=== PATIENT | female | born 1960 | race Hispanic/Latino ===

== ENCOUNTER → 2018-09-13 | Outpatient (CLI) | payer BC ==
[~2018-09-13] MED LIST: CARV12.511 PO; FESO8TAB PO; PREM625 PO; PREN-147 PO; PROG100C6 PO; VALS160T2 PO
== END | disposition home or self-care (01) ==
LOC: SHCH 08:08
PROVIDERS: ATTEND Internal Medicine Cardiovascular Disease
DX: I87.2 Venous insufficiency (chronic) (peripheral) (principal)
CPT/HCPCS: 93970